=== PATIENT | female | born 1990 | race African-American/Black ===

== ENCOUNTER 2016-09-08 10:19 | Emergency (ER) | payer SELFPAY ==
[~2016-09-08] VITALS: Ht 157.5 cm; Wt 62.0 kg
[~2016-09-08 10:19] MED LIST: IBUP600T26 PO
[2016-09-08 10:21] VITALS: BP 124/73; PULSE 104; RESP 16; TEMP 98.2; O2SAT 98
[2016-09-08 10:47] VITALS: BP 128/76; PULSE 80; RESP 16; O2SAT 98
[2016-09-08] MEDS ORDERED: SODIUM CHLORIDE 0.9% FLUSH 10 ML FLUSH IV FLUSH PRN (11:30)
[2016-09-08] MEDS ORDERED: ACETAMINOPHEN 500 MG CPLT PO ONE (11:30)
--- NOTE | 2016-09-08 11:45 | PD ---
HPI Chief Complaint: GI Complaint Time Seen by Provider: 10:43 Travel History International Travel<30 days: No Contact w/Intl Traveler<30days: No Traveled to known affect area: No History of Present Illness HPI Patient is a 26 year old female presenting with hematemesis, bloody diarrhea, nausea, and fever. She has been vomiting for the past two weeks and first noticed small amounts of clotted blood in the vomit 3 days ago. She states that she had a fever of 105F three days ago but has not spiked a fever since. This morning she had one episode of diarrhea with blood in the stool. She denies any medication use, history of medical problems, or family/friends with similar symptoms. She smokes cigarettes. PFSH Past Medical History Medical History: Denies Significant Hx Heart Rhythm Problems: Yes (FIRST DEGREE HEART BLOCK) Diminished Hearing: No Immune Disorder: Yes Immunizations Current: No Tetanus Vaccination: Unknown Influenza Vaccination: Yes ?: Unknown LMP: APRIL 2016 : 2 Para: 1 Miscarriage: 0 : 1 Past Surgical History Surgical History: No Previous Surgery Section: Yes Gynecologic Surgery: Yes Social History Alcohol Use: Yes (SOCIALLY) Tobacco Use: Yes (02/19 ppd) Substance Use: No (MARIJUANA) Allergies-Medications (Allergen,Severity, Reaction): Coded Allergies: No Known Allergies (Verified , 03/03/15) Reported Meds & Prescriptions Reported Meds & Active Scripts Active Zofran Odt (Ondansetron Odt) 4 Mg Tab 4 Mg SL Q6HR PRN Flagyl (Metronidazole) 500 Mg Tab 500 Mg PO BID 7 Days Cipro (Ciprofloxacin HCl) 500 Mg Tab 500 Mg PO BID 7 Days Review of Systems Except as stated in HPI: all other systems reviewed are Neg General / Constitutional: Positive: Fever, Weight Gain, No: Weight Loss HENT: Positive: Headaches Respiratory: No: Cough, Shortness of Breath Gastrointestinal: Positive: Nausea, Vomiting, Diarrhea, Hematemesis, Hematochezia Genitourinary: Positive: Hematuria, No: Urgency, Frequency, Dysuria Musculoskeletal: No: Myalgias Skin: No Rash Hematologic/Lymphatic: No: Easy Bruising Physical Exam Narrative GENERAL: Patient appears well and is sitting comfortably in bed. No acute distress SKIN: Warm and dry. HEAD: Atraumatic. Normocephalic. EYES: Pupils equal and round. No scleral icterus. No injection or drainage. Medill conjunctiva ENT: No nasal bleeding or discharge. Mucous membranes pink and moist. NECK: Trachea midline. No JVD. CARDIOVASCULAR: Regular rate and rhythm. RESPIRATORY: No accessory muscle use. Clear to auscultation. Breath sounds equal bilaterally. GASTROINTESTINAL: Abdomen soft, nondistended. Mild tenderness in suprapubic region. Hepatic and splenic margins not palpable. MUSCULOSKELETAL: Extremities without clubbing, cyanosis, or edema. No obvious deformities. NEUROLOGICAL: Awake and alert. No obvious cranial nerve deficits. Motor grossly within normal limits. Five out of 5 muscle strength in the arms and legs. Normal speech. PSYCHIATRIC: Appropriate mood and affect; insight and judgment normal. Data Data Last Documented VS Vital Signs Date Time Temp Pulse Resp B/P Pulse Ox O2 Delivery O2 Flow Rate FiO2 09/08/16 13:10 16 09/08/16 11:49 100 Room Air 09/08/16 10:47 80 128/76 09/08/16 10:21 98.2 Orders Ed Urine Pregnancytest Poc (09/08/16 10:47) Complete Blood Count With Diff (09/08/16 11:28) Comprehensive Metabolic Panel (09/08/16 11:28) Lipase (09/08/16 11:28) Prothrombin Time / Inr (Pt) (09/08/16 11:28) Act Partial Throm Time (Ptt) (09/08/16 11:28) Iv Access Insert/Monitor (09/08/16 11:28) Ecg Monitoring (09/08/16 11:28) Oximetry (09/08/16 11:28) Sodium Chloride 0.9% Flush (Ns Flush) (09/08/16 11:30) Acetaminophen (Tylenol) (09/08/16 11:30) Labs Laboratory Tests Test 09/08/16 11:30 White Blood Count 9.7 TH/MM3 Red Blood Count 4.20 MIL/MM3 Hemoglobin 13.0 GM/DL Hematocrit 38.9 % Mean Corpuscular Volume 92.5 FL Mean Corpuscular Hemoglobin 31.0 PG Mean Corpuscular Hemoglobin 33.5 % Concent Red Cell Distribution Width 12.7 % Platelet Count 332 TH/MM3 Mean Platelet Volume 8.4 FL Neutrophils (%) (Auto) 65.1 % Lymphocytes (%) (Auto) 25.6 % Monocytes (%) (Auto) 7.5 % Eosinophils (%) (Auto) 1.4 % Basophils (%) (Auto) 0.4 % Neutrophils # (Auto) 6.3 TH/MM3 Lymphocytes # (Auto) 2.5 TH/MM3 Monocytes # (Auto) 0.7 TH/MM3 Eosinophils # (Auto) 0.1 TH/MM3 Basophils # (Auto) 0.0 TH/MM3 CBC Comment DIFF FINAL Differential Comment Prothrombin Time 10.9 SEC Prothromb Time International 1.0 RATIO Ratio Activated Partial 28.7 SEC Thromboplast Time Sodium Level 137 MEQ/L Potassium Level 3.5 MEQ/L Chloride Level 104 MEQ/L Carbon Dioxide Level 26.0 MEQ/L Anion Gap 7 MEQ/L Blood Urea Nitrogen 12 MG/DL Creatinine 0.73 MG/DL Estimat Glomerular Filtration 117 ML/MIN Rate Random Glucose 90 MG/DL Calcium Level 8.9 MG/DL Total Bilirubin 0.8 MG/DL Aspartate Amino Transf 11 U/L (AST/SGOT) Alanine Aminotransferase 17 U/L (ALT/SGPT) Alkaline Phosphatase 79 U/L Total Protein 8.2 GM/DL Albumin 4.0 GM/DL Lipase 124 U/L [facility] Medical Decision Making Medical Screen Exam Complete: Yes Emergency Medical Condition: Yes Differential Diagnosis Gastric/duodenal ulcers Rufina-kline tear esophageal varices gastritis Narrative Course Patient roomed emergency department, appears well and in obvious distress, basic labs were sent, patient became restless and wanted to leave stating that she had things to do. She appears well her labs reviewed and showed no concerning abnormality. She is stable for discharge this time and recommended follow-up the primary care physician and easily clinic or a chef concierge. Discussed return to ED criteria. Discussed symptomatic management home for likely gastritis.. Diagnosis Primary Impression: GI bleeding Scripts Ondansetron Odt (Zofran Odt)4 Mg Tab4 Mg SL Q6HR PRN (Nausea/Vomiting) #20 TAB Ref 0 Prov:Heladio Archer MD 09/08/16 Metronidazole (Flagyl)500 Mg [id number] Mg PO BID 7 Days Ref 0 Prov:Heladio Archer MD 09/08/16 Ciprofloxacin (Cipro)500 Mg [id number] Mg PO BID 7 Days Ref 0 Prov:Heladio Archer MD 09/08/16 Disposition: 01 DISCHARGE HOME Condition: Stable Heladio Archer MD Sep 08, 2016 11:45
[2016-09-08 11:49] VITALS: O2SAT 100
[2016-09-08 12:04] LABS: AUTOMATED NEUTROPHIL # 6.3 TH/MM3 (1.8-7.7); BASOPHIL % 0.4 % (0.0-2.0); EOSINOPHIL # 0.1 TH/MM3 (0-0.4); EOSINOPHIL % 1.4 % (0.0-4.0); HEMATOCRIT 38.9 % (35.0-46.0); HEMO FLAGS DIFF FINAL; LYMPH % 25.6 % (9.0-44.0); LYMPHOCYTE # 2.5 TH/MM3 (1.0-4.8); MEAN CELL VOLUME 92.5 FL (80.0-100.0); MEAN CORPUSCULAR HGB CONC 33.5 % (32.0-36.0); MONO % 7.5 % (0.0-8.0); NEUT % 65.1 % (16.0-70.0); PLATELET COUNT 332 TH/MM3 (150-450); RED CELL DISTRIBUTION WIDTH 12.7 % (11.6-17.2); WHITE BLOOD COUNT 9.7 TH/MM3 (4.0-11.0)
[2016-09-08 12:12] LABS: ALT (GPT) 17 U/L (10-53); ANION GAP 7 MEQ/L (5-15); AST (GOT) 11 U/L (15-37); BLOOD UREA NITROGEN 12 MG/DL (7-18); CHLORIDE 104 MEQ/L (98-107); GLOMERULAR FILTRATION RATE 117 ML/MIN (>89); POTASSIUM 3.5 MEQ/L (3.5-5.1); SODIUM (NA) 137 MEQ/L (136-145)
[2016-09-08 12:14] LABS: ALKALINE PHOSPHATASE 79 U/L (45-117); TOTAL BILIRUBIN ADULT 0.8 MG/DL (0.2-1.0)
[2016-09-08 12:21] LABS: APTT (PATIENT) 28.7 SEC (24.3-30.1); PROTHROMBIN TIME - PATIENT 10.9 SEC (9.8-11.6)
[2016-09-08] MEDS ORDERED: ZOFR4TAB3 SL (12:24)
[2016-09-08] MEDS ORDERED: CIPR-9 PO (12:24)
[2016-09-08] MEDS ORDERED: METR-1 PO (12:24)
[2016-09-08 13:10] VITALS: RESP 16
== END 2016-09-08 13:11 | disposition home or self-care (01) ==
LOC: NEPC 10:19
DX: K92.2 Gastrointestinal hemorrhage, unspecified (principal)
CPT/HCPCS: 80053; 83690; 84703; 85025; 85610; 85730; 99284

== ENCOUNTER 2017-03-03 00:20 | Emergency (ER) | payer SELFPAY ==
[~2017-03-03] VITALS: Ht 154.9 cm; Wt 63.0 kg
[~2017-03-03 00:20] MED LIST changes: +CIPR-9 PO; -IBUP600T26 PO; +METR-1 PO; +ZOFR4TAB3 SL
[2017-03-03 00:21] VITALS: BP 124/66; PULSE 85; RESP 16; TEMP 98.5; O2SAT 99
--- NOTE | 2017-03-03 01:37 | PD ---
HPI Chief Complaint: Channel Specialist Problem/Complaint Time Seen by Provider: 01:35 Travel History International Travel<30 days: No Contact w/Intl Traveler<30days: No Traveled to known affect area: No History of Present Illness HPI 26-year-old female presents to the emergency department for complaint of vaginal bleeding 2 weeks. Last normal period was in January. Patient denies . No dysuria frequency or urgency. No injury. Patient also complains of head cold that started today. Patient did not give flu vaccine. Patient denies other concerns or complaints. PFSH Past Medical History Heart Rhythm Problems: Yes (FIRST DEGREE HEART BLOCK) Diminished Hearing: No Immune Disorder: Yes Immunizations Current: No ?: Not : 2 Para: 1 Miscarriage: 0 : 1 Past Surgical History Section: Yes Gynecologic Surgery: Yes Tympanostomy Tube: Yes ( CHILD ) Social History Alcohol Use: Yes (SOCIALLY) Tobacco Use: Yes (02/19 ppd) Substance Use: No (MARIJUANA) Allergies-Medications (Allergen,Severity, Reaction): Coded Allergies: No Known Allergies (Verified Adverse Reaction, Unknown, 03/03/17) Reported Meds & Prescriptions Reported Meds & Active Scripts Active Review of Systems Except as stated in HPI: all other systems reviewed are Neg General / Constitutional: No: Fever, Chills HENT: No: Congestion Cardiovascular: No: Chest Pain or Discomfort Respiratory: No: Shortness of Breath Gastrointestinal: No: Nausea, Vomiting, Abdominal Pain Genitourinary: Positive: Vaginal Bleeding, No: Dysuria Musculoskeletal: No: Myalgias, Arthralgias Skin: No Rash Neurologic: No: Weakness Psychiatric: No: Anxiety Hematologic/Lymphatic: No: Lymph Node Enlargement Physical Exam Narrative GENERAL: Well-developed well-nourished female in no acute distress no respiratory distress SKIN: Warm and dry. HEAD: Normocephalic. EYES: No scleral icterus. No injection or drainage. NECK: Supple, trachea midline. No JVD or lymphadenopathy. CARDIOVASCULAR: Regular rate and rhythm without murmurs, gallops, or rubs. RESPIRATORY: Breath sounds equal bilaterally. No accessory muscle use. GASTROINTESTINAL: Abdomen soft, non-tender, nondistended. Pelvic exam: Normal external exam no redness induration or lesions: Speculum exam small amount of blood without clots or tissue in the vaginal vault cervical os is closed; bimanual exam no adnexal mass or tenderness no cervical motion tenderness MUSCULOSKELETAL: No cyanosis, or edema. BACK: Nontender without obvious deformity. No CVA tenderness. Data Data Last Documented VS Vital Signs Date Time Temp Pulse Resp B/P (MAP) Pulse Ox O2 Delivery O2 Flow Rate FiO2 03/03/17 00:21 98.5 85 16 124/66 (85) 99 Room Air Orders Orders Complete Blood Count With Diff (03/03/17 01:35) Urinalysis - C+S If Indicated (03/03/17 01:35) Ed Urine Pregnancytest Poc (03/03/17 01:35) Influenzae A/B Antigen (03/03/17 01:35) Orthostatic Vital Signs (03/03/17 02:11) Labs Laboratory Tests Test 03/03/17 01:30 03/03/17 01:49 Urine Color YELLOW Urine Turbidity CLEAR Urine pH 7.0 Urine Specific [place] 1.024 Urine Protein NEG mg/dL Urine Glucose (UA) NEG mg/dL Urine Ketones NEG mg/dL Urine Occult Blood NEG Urine Nitrite NEG Urine Bilirubin NEG Urine Urobilinogen 2.0 MG/DL Urine Leukocyte Esterase NEG Urine RBC LESS THAN 1 /hpf Urine WBC 1 /hpf Urine Squamous Epithelial Cells <1 /hpf Microscopic Urinalysis Comment CULT NOT INDICATED White Blood Count 8.4 TH/MM3 Red Blood Count 3.61 MIL/MM3 Hemoglobin 11.5 GM/DL Hematocrit 34.0 % Mean Corpuscular Volume 94.2 FL Mean Corpuscular Hemoglobin 31.8 PG Mean Corpuscular Hemoglobin Concent 33.7 % Red Cell Distribution Width 13.6 % Platelet Count 247 TH/MM3 Mean Platelet Volume 8.9 FL Neutrophils (%) (Auto) 57.8 % Lymphocytes (%) (Auto) 29.0 % Monocytes (%) (Auto) 10.8 % Eosinophils (%) (Auto) 2.1 % Basophils (%) (Auto) 0.3 % Neutrophils # (Auto) 4.9 TH/MM3 Lymphocytes # (Auto) 2.4 TH/MM3 Monocytes # (Auto) 0.9 TH/MM3 Eosinophils # (Auto) 0.2 TH/MM3 Basophils # (Auto) 0.0 TH/MM3 CBC Comment DIFF FINAL Differential Comment MDM Medical Decision Making Medical Screen Exam Complete: Yes Emergency Medical Condition: Yes Medical Record Reviewed: Yes Interpretation(s) CBC & BMP Diagram 03/03/17 01:49 Vital Signs Date Time Temp Pulse Resp B/P (MAP) Pulse Ox O2 Delivery O2 Flow Rate FiO2 03/03/17 00:21 98.5 85 16 124/66 (85) 99 Room Air [id number] hCG: Negative Urinalysis: Values in normal range Influenza A/B antigen: Negative Differential Diagnosis Vaginal bleeding, dysfunctional uterine bleeding, , trauma, ruptured ovarian cyst Narrative Course Orthostatic vital signs obtained [id number] hCG negative CBC for hemoglobin specimen collected also patient with cold symptoms influenza antigen and specimen collected Pelvic exam reveals vaginal bleeding consistent with dysfunctional uterine bleeding but small amount of blood in the vaginal vault no mass no cervical motion tenderness no discharge Patient resting comfortably Diagnosis Primary Impression: Dysfunctional uterine bleeding Additional Impression: URI (upper respiratory infection) Referrals: Metal Dresser call for appointment Patient Instructions: General Instructions Additional Instructions: Increase fluid hydration Follow up with a cigarette packing machine operator Return to the emergency department for any concerns or change in condition Take acetaminophen or ibuprofen per package instructions as needed for fever 100.4F or greater or for pain; follow package directions Disposition: 01 DISCHARGE HOME Condition: Stable Krysten Novoa MD Mar 03, 2017 01:37
[2017-03-03 02:04] LABS: AUTOMATED NEUTROPHIL # 4.9 TH/MM3 (1.8-7.7); BASOPHIL % 0.3 % (0.0-2.0); EOSINOPHIL # 0.2 TH/MM3 (0-0.4); EOSINOPHIL % 2.1 % (0.0-4.0); HEMOGLOBIN 11.5 GM/DL (11.6-15.3); LYMPHOCYTE # 2.4 TH/MM3 (1.0-4.8); MEAN CELL VOLUME 94.2 FL (80.0-100.0); MEAN CORPUSCULAR HEMOGLOBIN 31.8 PG (27.0-34.0); MEAN CORPUSCULAR HGB CONC 33.7 % (32.0-36.0); MEAN PLATELET VOLUME 8.9 FL (7.0-11.0); MONO % 10.8 % (0.0-8.0); MONOCYTE # 0.9 TH/MM3 (0-0.9); NEUT % 57.8 % (16.0-70.0); PLATELET COUNT 247 TH/MM3 (150-450); RED BLOOD COUNT 3.61 MIL/MM3 (4.00-5.30); RED CELL DISTRIBUTION WIDTH 13.6 % (11.6-17.2); WHITE BLOOD COUNT 8.4 TH/MM3 (4.0-11.0)
[2017-03-03 02:10] LABS: BILIRUBIN, URINE NEG (NEG); BLOOD, URINE NEG (NEG); GLUCOSE,URINE NEG (NEG); KETONE, URINE NEG (NEG); NITRITE,URINE NEG (NEG); SQUAMOUS EPITHELIAL CELL URINE <1 /hpf (0-5); URINE COLOR YELLOW (YELLW/STRAW); URINE LEUKOCYTE ESTERASE NEG (NEG)
[2017-03-03 02:16] VITALS: BP_SYST 102; BP_SYST 104; BP_SYST 109; BP_DIAS 58; BP_DIAS 62
== END 2017-03-03 02:57 | disposition home or self-care (01) ==
LOC: NEPC 00:20
DX: N93.8 Other specified abnormal uterine and vaginal bleeding (principal); J06.9 Acute upper respiratory infection, unspecified; J00 Acute nasopharyngitis [common cold]; F17.200 Nicotine dependence, unspecified, uncomplicated
CPT/HCPCS: 81001; 84703; 85025; 87804; 99284

== ENCOUNTER 2017-04-12 19:31 | Emergency (ER) | payer SELFPAY ==
[~2017-04-12] VITALS: Ht 154.9 cm; Wt 71.0 kg
[2017-04-12 19:34] VITALS: BP 133/79; PULSE 109; RESP 18; TEMP 98.8; O2SAT 100
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
[2017-04-12] MEDS ORDERED: IBUPROFEN 400 MG TAB PO ONE (21:00)
--- NOTE | 2017-04-12 21:21 | PD ---
Physical Exam Date Seen by Provider: Apr 12, 2017 Time Seen by Provider: 21:19 Narrative Skin: There is a 3 cm laceration to the left cheek. Data Data Last Documented VS Vital Signs Date Time Temp Pulse Resp B/P (MAP) Pulse Ox O2 Delivery O2 Flow Rate FiO2 04/12/17 20:15 Room Air 04/12/17 19:34 98.8 109 18 133/79 (97) [address] Brain W/O Iv Contrast(Rout) (04/12/17 ) Ct Facial Bones W/O Iv Cont (04/12/17 ) Ct Cerv Spine W/O Contrast (04/12/17 ) Ed Urine Pregnancytest Poc (04/12/17 20:55) Ibuprofen (Motrin) (04/12/17 21:00) MDM Medical Record Reviewed: Yes Supervised Visit with CHRIS: Yes Differential Diagnosis . Narrative Course Patient's lacerations closed with sutures Procedures Procedure Narrative LACERATION LOCATION: Left cheek LENGTH: 3 cm NUMBER OF STITCHES/NASIM: 6 REPAIR: The area of the laceration was prepped with Betadine and sterilely draped. The laceration was infiltrated with 1% lidocaine with epinephrine. The wound was copiously irrigated and explored without evidence of foreign body , tendon injury or neurovascular injury. The wound was closed using 6-0 Prolene. This was a simple single layer repair. A sterile dressing was applied. The patient was advised to keep the dressing clean and dry. Patient tolerated the procedure well. Holden Hayes Apr 12, 2017 21:21
== END 2017-04-12 22:15 | disposition home or self-care (01) ==
LOC: NEPD 19:31
DX: S01.412A Laceration without foreign body of left cheek and temporomandibular area, initial encounter (principal); S01.81XA Laceration without foreign body of other part of head, initial encounter; F17.200 Nicotine dependence, unspecified, uncomplicated; Y04.2XXA Assault by strike against or bumped into by another person, initial encounter
CPT/HCPCS: 12013; 84703